=== PATIENT | male | born 1990 | race Caucasian/White ===

== ENCOUNTER 2017-03-26 08:14 | Emergency (ER) | payer MEDICAID ==
[~2017-03-26] VITALS: Ht 182.9 cm; Wt 90.7 kg
--- NOTE | 2017-03-26 08:14 | NUR ---
BROUGHT BACK TO BED #5 AND TRIAGED. REPORT GIVEN TO LUCIAN
[2017-03-26 08:15] VITALS: BP_SYST 134
--- NOTE | 2017-03-26 08:20 | NUR ---
ER at bedside examining patient.
--- NOTE | 2017-03-26 08:30 | NUR ---
Pt complains of bladder retention since yesterday, unable to void, pain in lower abdomen. Dr Meyers examined pt and ordered a sawyer to be placed. Pt is able to ambulate without difficulty. Pt denies n/v or fever. No other injuries/complaints per pt or noted.
--- NOTE | 2017-03-26 08:35 | NUR ---
# 16 FR Jones catheter with use of sterile technique. Immediate return of 5 cc straw with blood clot urine noted. Bedside drainage bag placed below level of bladder. Urine sample collected and sent to lab. Pt tolerated procedure well. Pt unable to void since yesterday morning.
[2017-03-26 09:11] LABS: BASOPHILS % (AUTO) 0.2 % (0.0-2.0); EOSINOPHILS % (AUTO) 0.2 % (0.0-4.0); HEMATOCRIT 43.6 % (36-54); HEMOGLOBIN 14.7 g/dL (14.0-18.0); LYMPHOCYTES # (AUTO) 1.7 K/uL (1.0-5.5); LYMPHOCYTES % (AUTO) 8.3 % (20.5-51.5); MEAN CORPUSCULAR HEMOGLOBIN 29 pg (27-31); MEAN CORPUSCULAR HGB CONC 34 % (32-36); MEAN CORPUSCULAR VOLUME 87 fL (79.0-98.0); MONOCYTES # (AUTO) 1.7 K/uL (0.0-1.0); NEUTROPHILS # (AUTO) 17.7 K/uL (1.8-7.7); NEUTROPHILS % (AUTO) 83.3 % (40.0-70.0); PLATELET COUNT (AUTO) 290 K/uL (130-430); RED BLOOD CELL COUNT(AUTO) 5.01 MIL/uL (4.2-6.2); WHITE BLOOD COUNT (AUTO) 21.1 K/uL (4.8-10.8)
--- NOTE | 2017-03-26 09:30 | NUR ---
Pt is resting comfortably in bed with no noted distress or discomfort.
[2017-03-26 09:48] LABS: CALCIUM 10.1 mg/dL (8.4-11.0); CREATININE 1.08 mg/dL (0.55-1.30); POTASSIUM 3.6 mmol/L (3.5-5.1)
[2017-03-26 09:53] LABS: ALBUMIN 4.5 g/dL (3.4-4.8); TOTAL BILIRUBIN 1.6 mg/dL (0.0-1.0)
--- NOTE | 2017-03-26 10:15 | NUR ---
Pt went to radiology in stable condition.
--- NOTE | 2017-03-26 10:30 | NUR ---
Pt returned from radiology in stable condition.
--- NOTE | 2017-03-26 11:30 | NUR ---
Pt was given the 3 ways 20g sawyer catheter, pt tolerated it well. Dr Meyers wants irrigation in the sawyer.
[2017-03-26 11:46] LABS: BILIRUBIN,URINE 1+ (NEGATIVE); BLOOD, URINE 3+ (NEGATIVE); CLARITY/URINE CLOUDY (CLEAR); COLOR,URINE YELLOW (YELLOW); GLUCOSE,URINE NEGATIVE (NEGATIVE); KETONES,URINE TRACE (NEGATIVE); LEUKOCYTE ESTERASE ,URINE 1+ (NEGATIVE); NITRITE, URINE NEGATIVE (NEGATIVE); PH,URINE 6.5 (5.0-8.0); PROTEIN URINE 3+ (NEGATIVE)
[2017-03-26 12:00] LABS: BACTERIA,URINE FEW /HPF (None Seen); RBC,URINE 20-50 /HPF (0-3)
--- NOTE | 2017-03-26 12:26 | NUR ---
Pt is resting with no noted distress at this time.
[2017-03-26] MEDS ORDERED: cefTRIAXone 2 GM VIAL ONE (12:37)
[2017-03-26] MEDS ORDERED: HYDROmorphone 1 MG INJ. 1 MG/ML AMPUL IVP ONE (12:45)
--- NOTE | 2017-03-26 13:25 | NUR ---
Pt is resting in bed with no noted distress or discomfort. Leg bag was applied to pt, tolerated well.
[2017-03-26 14:58] VITALS: BP_SYST 120
--- NOTE | 2017-03-26 14:58 | NUR ---
Patient given written and verbal discharge instructions and verbalizes understanding. ER MD discussed with patient the results and treatment provided. Patient in stable condition. ID arm band removed. IV catheter removed intact and dressing applied, no active bleeding. Rx of doxycycline and tylenol #3 given. Patient educated on pain management and to follow up with PMD. Pain Scale 3. Dr Meyers is aware, prescription was given and pain medication was given here. Opportunity for questions provided and answered.
== END 2017-03-26 14:58 | disposition home or self-care (01) ==
LOC: SED 08:14
DX: N30.91 Cystitis, unspecified with hematuria (principal)
CPT/HCPCS: 36415; 51702; 74176; 80053; 81000; 83605; 85025; 87040; 87086; 87186; 96365; 96375; 99285; J0696; J1170; J7060

== ENCOUNTER 2017-03-28 08:43 | Emergency (ER) | payer MEDICAID ==
[~2017-03-28] VITALS: Ht 182.9 cm; Wt 90.7 kg
--- NOTE | 2017-03-28 08:55 | NUR ---
Pt placed in bed 7, report endorsed to Jason LOCKWOOD
[2017-03-28 08:56] VITALS: BP_SYST 140
--- NOTE | 2017-03-28 09:00 | NUR ---
Pt presents to ED c/o pain from sawyer cath. Pt's cath inserted 2 days.Pt has urology appt this AM, however pt was unbable to tolerated pain.
--- NOTE | 2017-03-28 09:30 | NUR ---
Leg bag removed sawyer bag attached and bladder irrigation started.
--- NOTE | 2017-03-28 10:30 | NUR ---
Pt tolerated irrigation drainage clear. PT's leg bag reattached.
[2017-03-28 10:46] VITALS: BP_SYST 140
--- NOTE | 2017-03-28 10:46 | NUR ---
Patient given written and verbal discharge instructions and verbalizes understanding. ER MD discussed with patient the results and treatment provided. Patient in stable condition. ID arm band removed. Rx of NORCO given. Patient educated on pain management and to follow up with PMD. Pain Scale 2 Opportunity for questions provided and answered.
== END 2017-03-28 10:46 | disposition home or self-care (01) ==
LOC: SED 08:43
DX: R33.9 Retention of urine, unspecified (principal)
CPT/HCPCS: 99284; J7030

== ENCOUNTER 2021-04-14 08:34 | Day surgery (SDC) | payer MEDICAID ==
[~2021-04-14] VITALS: Ht 185.4 cm; Wt 95.3 kg
[2021-04-14] MEDS ORDERED: MEPERIDINE 100 MG INJ. 100 MG/ML VIAL ONE (09:43)
[2021-04-14] MEDS ORDERED: MIDAZOLAM HCL 5 MG/5 ML VIAL ONE ×2 (09:43→10:16)
[2021-04-14] MEDS ORDERED: DIPHENHYDRAMINE INJ 50 MG/ML VIAL ONE (10:15)
[2021-04-14 16:30] VITALS: BP_SYST 127
== END 2021-04-14 11:30 | disposition home or self-care (01) ==
LOC: SDS 08:34 → SMU 08:35 → SDS 11:30
PROVIDERS: ATTEND Internal Medicine Gastroenterology
DX: K21.9 Gastro-esophageal reflux disease without esophagitis (principal); K29.50 Unspecified chronic gastritis without bleeding; K22.0 Achalasia of cardia; F17.210 Nicotine dependence, cigarettes, uncomplicated; Z79.899 Other long term (current) drug therapy; Z20.822 Contact with and (suspected) exposure to COVID-19
CPT/HCPCS: 36415; 43239; 43249; 87081; 87426; 88305; 88312; 88313; 99152; 99153; G0378; J1200; J2175; J2250

== ENCOUNTER 2022-03-08 11:19 | Emergency (ER) | payer MEDICAID ==
[~2022-03-08] VITALS: Ht 185.4 cm; Wt 90.7 kg
[2022-03-08 11:39] VITALS: BP_SYST 157
[2022-03-08] MEDS ORDERED: LIDOCAINE/EPI 2% 1:100000 20 ML VIAL INJ ONE ×2 (12:45→12:47)
[2022-03-08] MEDS ORDERED: IBUPROFEN 600 MG TABLET PO ONE (12:45)
[2022-03-08] MEDS ORDERED: IBUP-1969 PO (14:30)
[2022-03-08] MEDS ORDERED: HYDR-3917 PO (14:30)
[2022-03-08] MEDS ORDERED: HYDROcodone/ACETAMIN 5-325 MG TAB (NORCO/ VICODIN) PO ONE (14:45)
[2022-03-08 18:18] VITALS: BP_SYST 148
== END 2022-03-08 18:18 | disposition home or self-care (01) ==
LOC: SED 11:19
DX: S01.01XA Laceration without foreign body of scalp, initial encounter (principal); S13.4XXA Sprain of ligaments of cervical spine, initial encounter; Z79.899 Other long term (current) drug therapy; W01.198A Fall on same level from slipping, tripping and stumbling with subsequent striking against other object, initial encounter; Y93.89 Activity, other specified; Y92.89 Other specified places as the place of occurrence of the external cause; Y99.8 Other external cause status
CPT/HCPCS: 70450-TC; 72125-TC; 76376; 93005; 99284